=== PATIENT | female | born 1960 | race Caucasian/White ===

== ENCOUNTER 2017-04-17 14:15 | Emergency (ER) | payer OTHER ==
[~2017-04-17] VITALS: Ht 157.5 cm; Wt 90.9 kg
[2017-04-17 14:21] VITALS: BP 117/82; PULSE 84; RESP 14; TEMP 98.2; O2SAT 98
[2017-04-17 14:31] VITALS: BP 112/56; PULSE 76; RESP 18; TEMP 98.2; O2SAT 100
[2017-04-17 16:33] LABS: AUTOMATED NEUTROPHIL # 11.1 TH/MM3 (1.8-7.7); BASOPHIL % 0.2 % (0.0-2.0); EOSINOPHIL # 0.1 TH/MM3 (0-0.4); HEMATOCRIT 41.2 % (35.0-46.0); HEMOGLOBIN 13.6 GM/DL (11.6-15.3); LYMPHOCYTE # 1.5 TH/MM3 (1.0-4.8); MEAN CELL VOLUME 87.7 FL (80.0-100.0); MEAN PLATELET VOLUME 7.4 FL (7.0-11.0); MONO % 5.2 % (0.0-8.0); MONOCYTE # 0.7 TH/MM3 (0-0.9); NEUT % 82.6 % (16.0-70.0); PLATELET COUNT 297 TH/MM3 (150-450); RED BLOOD COUNT 4.69 MIL/MM3 (4.00-5.30); RED CELL DISTRIBUTION WIDTH 14.5 % (11.6-17.2); WHITE BLOOD COUNT 13.5 TH/MM3 (4.0-11.0)
[2017-04-17 16:41] LABS: INTERNATIONAL NORMALIZED RATIO 1.3 RATIO
[2017-04-17 16:42] VITALS: BP 182/78; PULSE 59; RESP 19; O2SAT 99
[2017-04-17] MEDS ORDERED: MORPHINE SULFATE 4 MG/ML INJ IV PUSH ONE (16:45)
[2017-04-17] MEDS ORDERED: BIOT10TA PO (16:49)
[2017-04-17] MEDS ORDERED: CHOL5000 PO (16:49)
[2017-04-17] MEDS ORDERED: MULTTAB67 PO (16:49)
[2017-04-17] MEDS ORDERED: LACT1CAP19 (16:49)
[2017-04-17] MEDS ORDERED: VITATAB11 (16:49)
[2017-04-17] MEDS ORDERED: SERT-132 PO (16:49)
[2017-04-17 16:56] LABS: ALBUMIN 3.7 GM/DL (3.4-5.0); ALT (GPT) 23 U/L (10-53); AST (GOT) 28 U/L (15-37); BICARBONATE 22.8 MEQ/L (21.0-32.0); BLOOD UREA NITROGEN 12 MG/DL (7-18); CHLORIDE 108 MEQ/L (98-107); CREATININE 0.74 MG/DL (0.50-1.00); GLOMERULAR FILTRATION RATE 82 ML/MIN (>89); GLUCOSE,RANDOM 86 MG/DL (74-106); SODIUM (NA) 139 MEQ/L (136-145)
[2017-04-17 16:58] LABS: ALKALINE PHOSPHATASE 88 U/L (45-117); TOTAL BILIRUBIN ADULT 0.2 MG/DL (0.2-1.0); TOTAL PROTEIN 7.8 GM/DL (6.4-8.2)
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
[2017-04-17] MEDS ORDERED: oxyCODONE/ACETAMINOPHEN 5 MG/325 MG TAB PO ONE (18:30)
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
[2017-04-17] MEDS ORDERED: IOHEXOL 350 MG/ML 10 ML VIAL (for RAD DIAG) IVCONTRAST ONE (19:05)
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
[2017-04-17 19:15] VITALS: BP 136/90; PULSE 70; RESP 20; O2SAT 99
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
[2017-04-17] MEDS ORDERED: PERC5TAB12 PO (19:31)
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
== END 2017-04-17 23:22 | disposition home or self-care (01) ==
LOC: NEPC 14:15
DX: S62.397A Other fracture of fifth metacarpal bone, left hand, initial encounter for closed fracture (principal); M25.571 Pain in right ankle and joints of right foot; M54.9 Dorsalgia, unspecified; V49.40XA Driver injured in collision with unspecified motor vehicles in traffic accident, initial encounter
CPT/HCPCS: 70450; 71260; 72125; 73110; 73564; 73610; 74177; 80053; 85025; 85610; 85730; 96374; 99285; J2270; Q9967